=== PATIENT | female | born 1955 | race Caucasian/White ===

== ENCOUNTER 2022-05-14 13:50 | Emergency (ER) | payer MEDICARE ==
[~2022-05-14] VITALS: Ht 160 cm; Wt 78.5 kg
[~2022-05-14 13:50] MED LIST: APIX5TAB PO; ATOR40TA71 PO; CLOP75TA32 PO; MONT-39 PO; SERT-439 PO
[2022-05-14 14:04] VITALS: BP 114/60
[2022-05-14] MEDS ORDERED: D-ME118S47 PO (18:01)
[2022-05-14] MEDS ORDERED: FEXO180T94 PO (18:01)
[2022-05-19] MEDS ORDERED: PANT40TA54 PO (14:47)
== END 2022-05-14 18:24 | disposition home or self-care (01) ==
LOC: EDH 13:50
DX: J30.9 Allergic rhinitis, unspecified (principal); E78.00 Pure hypercholesterolemia, unspecified; J11.1 Influenza due to unidentified influenza virus with other respiratory manifestations; Z20.822 Contact with and (suspected) exposure to COVID-19; Z79.899 Other long term (current) drug therapy; Z88.0 Allergy status to penicillin; Z88.8 Allergy status to other drugs, medicaments and biological substances; Z85.9 Personal history of malignant neoplasm, unspecified; Z86.73 Personal history of transient ischemic attack (TIA), and cerebral infarction without residual deficits
CPT/HCPCS: 99284; 87804 ×2; 87635; 71045; C9803

== ENCOUNTER 2022-05-20 07:45 | Day surgery (SDC) | payer MEDICARE ==
[2022-05-17 14:36] LABS: BASOPHILS % (AUTO) 0.3 % (0.0-5.0); EOSINOPHILS % (AUTO) 3.2 % (0.0-8.0); HEMATOCRIT 40.9 % (36-48); LYMPHOCYTES % (AUTO) 24.7 % (21.0-51.0); MEAN CORPUSCULAR HEMOGLOBIN 28.6 pg (27.0-33.0); MEAN CORPUSCULAR HGB CONC 32.3 g/dL (32.0-36.0); MEAN CORPUSCULAR VOLUME 88.7 fL (79-99); MONOCYTES % (AUTO) 8.6 % (3.0-13.0); NEUTROPHILS % (AUTO) 63.1 % (40.0-77.0); PLATELET COUNT (AUTO) 246 K/uL (130-400); RED BLOOD CELL COUNT(AUTO) 4.61 MIL/uL (4.00-5.50); RED CELL DISTRIBUTION WIDTH 14.2 % (11.0-15.5); WHITE BLOOD COUNT (AUTO) 7.4 K/uL (4.8-10.8)
[2022-05-17 14:38] LABS: APPEARANCE,URINE CLOUDY (CLEAR); BILIRUBIN,URINE NEGATIVE (NEGATIVE); COLOR,URINE YELLOW (YELLOW); GLUCOSE, URINE (UA) NEGATIVE (NEGATIVE); KETONES,URINE NEGATIVE (NEGATIVE); LEUKOCYTE ESTERASE ,URINE 250 Leu/uL (NEGATIVE); NITRATE,URINE NEGATIVE (NEGATIVE); PH,URINE 5.5 (5.0-8.0); PROTEIN,URINE 10 mg/dL (NEGATIVE)
[2022-05-17 14:46] LABS: BACTERIA,URINE RARE /HPF (None Seen); MUCUS,URINE FEW LPF (None Seen); SQUAMOUS EPITHELIAL CELL,UR FEW /HPF (0-2); YEAST,URINE BUDDING RARE /HPF (None Seen)
[2022-05-17 14:51] LABS: INR 0.94 (0.85-1.15); PROTHROMBIN TIME 10.3 SEC (9.6-11.6)
[2022-05-17 14:52] LABS: PARTIAL THROMBOPLASTIN TIME 29.3 SEC (26.3-35.5)
[2022-05-17 14:54] LABS: CREATININE 0.8 mg/dL (0.5-1.5); POTASSIUM 3.7 mmol/L (3.5-5.1)
[2022-05-17 15:08] LABS: B-TYPE NATRIURETIC PEPTIDE 8 pg/mL (0-100)
[2022-05-19 11:50] VITALS: BP 122/70
[2022-05-20] VITALS (24 sets, daily range): BP systolic 117–157; BP diastolic 61–90
[~2022-05-20] VITALS: Ht 160 cm; Wt 76.7 kg
[~2022-05-20 07:45] MED LIST changes: +0.9% NACL 500ML IV.SOLN 500 ML IV SCH; +PANT40TA54 PO
[2022-05-20] MEDS ORDERED: 0.9%NACL 1000ML 1,000 ML IV ONE (08:26)
[2022-05-20] MEDS ORDERED: LEVO-70 PO (09:21)
[2022-05-20] MEDS ORDERED: SODIUM BICARB 50MEQ 50ML VIAL 0 ML ONE (10:10)
[2022-05-20] MEDS ORDERED: NITROGLYCERIN 50MG VIAL ONE ×2 (10:10→11:42)
[2022-05-20] MEDS ORDERED: IODIXANOL 320 MG/ML 100 ML VIAL ONE (10:11)
[2022-05-20] MEDS ORDERED: LIDOCAINE HCL 400MG/20ML VIAL ONE ×2 (10:11→11:42)
[2022-05-20] MEDS ORDERED: MIDAZOLAM HCL 1 MG/ML 2ML VIAL ONE ×2 (10:24→11:42)
[2022-05-20] MEDS ORDERED: MEPERIDINE-PF 25 MG/ML SYG ONE ×2 (10:24→11:42)
[2022-05-20] MEDS ORDERED: GLUCAGON 1MG KIT 1 MG ML IM PRN (11:30)
[2022-05-20] MEDS ORDERED: 0.9%NACL 1000ML 1,000 ML IV SCH (11:30)
[2022-05-20] MEDS ORDERED: DEXTROSE 50%-WATER 50 ML DISP.SYRIN IV PRN (11:30)
[2022-05-20] MEDS ORDERED: SOLU-MEDROL 125MG VIAL ONE (11:41)
[2022-05-20] MEDS ORDERED: SODIUM BICARB 50MEQ 50ML VIAL 50 ML ONE (11:41)
[2022-05-20] MEDS ORDERED: IOHEXOL 350 MG/ML 100ML INFUS..BTL IV ONE (11:42)
[2022-05-20] MEDS ORDERED: IOHEXOL-350 50ML VIAL IV ONE (11:42)
[2022-05-20] MEDS ORDERED: HEPARIN 10,000 UNIT/10ML (1,000 UNIT/ML) VIAL ONE (11:42)
[2022-05-20] MEDS ORDERED: NICARDIPINE 25MG INJ IV ONE (11:49)
[2022-05-20] MEDS ORDERED: ATROPINE 1MG SYG IVP ONE (11:50)
== END 2022-05-20 20:17 | disposition home or self-care (01) ==
LOC: DAH 07:45
PROVIDERS: ATTEND Internal Medicine Cardiovascular Disease
DX: I65.23 Occlusion and stenosis of bilateral carotid arteries (principal); K21.9 Gastro-esophageal reflux disease without esophagitis; Z86.73 Personal history of transient ischemic attack (TIA), and cerebral infarction without residual deficits; Z98.890 Other specified postprocedural states; Z95.5 Presence of coronary angioplasty implant and graft; Z88.0 Allergy status to penicillin; Z79.01 Long term (current) use of anticoagulants; Z79.899 Other long term (current) drug therapy
CPT/HCPCS: 80048; 83880; 85025; 85610; 85730; 87077 ×2; 87088; 87186 ×2; 81001; 36415; 71045; 93005; 36223; C1894 ×2; J3490 ×3; J7030; J2250; J2175; J1644; Q9967; A4215; A4222; A4221; A4663; A4216; A4606; A4223 ×3; 99156; 99157; J0461; J2930

== ENCOUNTER → 2022-05-25 | Outpatient (CLI) | payer MEDICARE ==
[~2022-05-25] MED LIST changes: -0.9% NACL 500ML IV.SOLN 500 ML IV SCH; +LEVO-70 PO
== END | disposition home or self-care (01) ==
LOC: SHCH 14:00
PROVIDERS: ATTEND Student in an Organized Health Care Education/Training Program
DX: I65.22 Occlusion and stenosis of left carotid artery (principal)
CPT/HCPCS: 93880

== ENCOUNTER → 2023-01-06 | Outpatient (CLI) | payer MEDICARE ==
[~2023-01-06] MED LIST changes: +ACET-2113 PO; -APIX5TAB PO; +ASPI-1197 PO; +ATOR40TA69 PO; -ATOR40TA71 PO; +BUDE10.2 IH; +CHOL200074 PO; +EZET10TA48 PO; -LEVO-70 PO; -PANT40TA54 PO
[2023-01-06 12:49] LABS: CREATININE 0.8 mg/dL (0.5-1.5); MAGNESIUM 1.6 mg/dL (1.80-2.40); POTASSIUM 3.8 mmol/L (3.5-5.1)
== END | disposition home or self-care (01) ==
LOC: LAB 11:35
PROVIDERS: ATTEND Internal Medicine Cardiovascular Disease
DX: I10 Essential (primary) hypertension (principal); E78.5 Hyperlipidemia, unspecified
CPT/HCPCS: 36415; 80048; 83735; 83880

== ENCOUNTER → 2023-12-20 | Outpatient (CLI) | payer MEDICARE | END | disposition home or self-care (01) | LOC: SHCH 13:43 | PROVIDERS: ATTEND Internal Medicine Cardiovascular Disease | DX: I65.23 Occlusion and stenosis of bilateral carotid arteries (principal) | CPT/HCPCS: 93880 ==